=== PATIENT | male | born 1980 | race Caucasian/White ===

== ENCOUNTER 2023-12-08 12:25 | Inpatient (IN) | payer BC, SELFPAY ==
--- NOTE | 2023-12-08 12:35 | W.ED.PSYCHS ---
HPI - Psych General: Chief Complaint: Psychiatric Symptoms Stated Complaint: SI-HI Time Seen by Provider: 12/08/23 12:27 Source: patient Mode of arrival: ambulatory Limitations: no limitations History of Present Illness: Patient is a 43-year-old male who presents to ED today with complaint of worsening depression and suicidal ideations. Patient was reportedly sent over from his therapist/counselor. He states he has a longstanding history of depression. He is on antidepressant medications but do not feel like these are working. Patient feels like his suicidal thoughts are worsening and contemplate suicide daily. He has no specific plan at this time. He does report a previous suicide attempt. Patient states he has not been eating secondary to his depression and is having significant weight loss. Patient states I have a lot going on right now that is contributing to his worsening depression and suicidal thoughts. MD complaint: suicidal ideation and feels depressed Onset (ago): month(s) Duration: constant and getting worse History of same: Yes Relieving factors: none Exacerbating factors: other (stress) Context: significant life stressor Associated psychiatric symptoms: depression and suicidal ideation Associated symptoms: Reports depression and suicidal ideation; Deny auditory hallucinations or visual hallucinations Treatments prior to arrival: none If self harm: admits thoughts of self harm Review of Systems Const: Denies: fever(s) or chills Card: Denies: chest pain, palpitations, lightheadedness or syncope Resp: Denies: dyspnea GI: Denies: abdominal pain, nausea, vomiting or diarrhea Skin/Breast: Denies: rash Neuro: Denies: headache(s) Psych: Reports: anxiety, depression, hopelessness and suicidal ideation; Denies: paranoia, visual hallucinations or auditory hallucinations [facility] ED PFSH: Medical History Psychiatric care Physical Exam Const: COMMON NORMALS: no acute distress, average body habitus, patient oriented x3, no limitations, healthy appearing, alert and well nourished GENERAL APPEARANCE: cooperative Resp: COMMON NORMALS: normal respiratory effort and clear to auscultation bilaterally AUSCULTATION: clear to auscultation bilaterally Cardio: COMMON NORMALS: regular rate and regular rhythm RATE: regular rate RHYTHM: regular rhythm Neuro: COMMON NORMALS: patient oriented x3 SENSORIUM/ORIENTATION: Yes alert Psych: COMMON NORMALS: mental status grossly normal, Normal thought process present, cooperative, normal affect, speech normal and activity/motor behavior normal APPEARANCE: Yes grossly normal ATTITUDE: Yes calm ACTIVITY/MOTOR BEHAVIOR: Yes appropriate eye contact and No psychomotor agitation SPEECH: Yes normal speech MOOD & AFFECT: Yes euthymic mood THOUGHT PROCESS: Normal thought process present THOUGHT CONTENT: Yes Suicidality present MEMORY/COGNITION: Yes memory grossly intact and Yes cognition grossly intact INSIGHT: Good insight present (Psych) JUDGEMENT: Good judgement present (Psych) Course Consultations: Consultation #1: Dr. Dow-accepts to [facility] Vital Signs: Vital signs: Vital Signs Temperature 98.6 F 12/08/23 12:36 Pulse Rate 84 12/08/23 12:36 Respiratory Rate 16 12/08/23 12:36 Blood Pressure 143/86 12/08/23 12:36 Pulse Oximetry 98 12/08/23 12:36 MDM - Psych Medical Decision Making Patient will be an admit to [facility] for treatment/evaluation of his worsening depression and suicidal ideations. He is voluntary at this time. Lab Data 12/08/23 13:08 12/08/23 13:08 Laboratory Results WBC 5.96 10^3/uL (3.29-11.43) 12/08/23 13:08 RBC 5.18 10^6/uL (3.85-5.65) 12/08/23 13:08 Hgb 16.10 g/dL (11.27-16.99) 12/08/23 13:08 Hct 46.9 % (37-53) 12/08/23 13:08 MCV 90.5 fl (82-101) 12/08/23 13:08 MCH 31.1 pg (27-33) 12/08/23 13:08 MCHC 34.3 g/dL (30-55) 12/08/23 13:08 RDW 13.6 % (12.1-15.1) 12/08/23 13:08 Plt Count 298 10^3/cmm (157-399) 12/08/23 13:08 MPV 8.2 fL (7.4-10.4) 12/08/23 13:08 Neut % (Auto) 75.3 % 12/08/23 13:08 Lymph % (Auto) 14.3 % 12/08/23 13:08 [place] % (Auto) 8.7 % 12/08/23 13:08 Eos % (Auto) 0.7 % 12/08/23 13:08 Baso % (Auto) 0.7 % 12/08/23 13:08 Neut # (Auto) 4.49 10^3/uL (1.8-7.7) 12/08/23 13:08 Lymph # (Auto) 0.9 10^3/uL (0.8-4.8) 12/08/23 13:08 [place] # (Auto) 0.5 10^3/uL (0.2-0.9) 12/08/23 13:08 Eos # (Auto) 0.0 10^3/uL (0.0-0.8) 12/08/23 13:08 Baso # (Auto) 0.0 10^3/uL (0.0-0.1) 12/08/23 13:08 Nucleated RBC % (auto) 0 % 12/08/23 13:08 Nucleated RBCs # 0.0 /100WBC 12/08/23 13:08 Sodium 139 mmol/L (136-145) 12/08/23 13:08 Potassium 3.7 mmol/L (3.5-5.1) 12/08/23 13:08 Chloride 98 mmol/L (98-107) 12/08/23 13:08 Carbon Dioxide 30 mmol/L (22-29) H 12/08/23 13:08 Anion Gap 14.7 (5-19) 12/08/23 13:08 BUN 8 mg/dL (6-20) 12/08/23 13:08 Creatinine 0.9 mg/dL (0.7-1.2) 12/08/23 13:08 GFR Calculation 93.0 mL/min (90-130) 12/08/23 13:08 Glucose 115 mg/dL (65-115) 12/08/23 13:08 Calculated Osmolality 287 mOsm/kg (285-295) 12/08/23 13:08 Calcium 9.6 mg/dL (8.5-10.5) 12/08/23 13:08 Total Bilirubin 0.9 mg/dL (0.15-1.2) 12/08/23 13:08 AST 17 U/L (0-40) 12/08/23 13:08 ALT 15 U/L (0-41) 12/08/23 13:08 Alkaline Phosphatase 55 U/L (40-130) 12/08/23 13:08 Total Protein 7.8 g/dL (6.6-8.7) 12/08/23 13:08 Albumin 4.9 g/dL (3.5-5.2) 12/08/23 13:08 Globulin 2.9 g/dL (1.3-4.6) 12/08/23 13:08 TSH 1.37 uIU/mL (0.27-4.20) 12/08/23 13:08 Salicylates < 0.3 mg/dL (3-10) L 12/08/23 13:08 Acetaminophen < 5.0 ug/mL (10-30) L 12/08/23 13:08 Ethyl Alcohol < 10 mg/dL (0-10) 12/08/23 13:08 No radiology studies performed this visit Discharge Plan Discharge Patient Disposition: Admitted As Inpatient Clinical Impression: Suicidal ideation, Depression Condition: Stable Coding Level of Care Code ED Coordinator Of Rehabilitation Services for Vivien Calderon
[2023-12-08 12:36] VITALS: BP 143/86; PULSE 84; RESP 16; TEMP 37; O2SAT 98
--- NOTE | 2023-12-08 12:51 | ECG_ITS ---
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 Measurements Intervals [place] Rate: 73 P: 63 CT: 174 QRS: 60 QRSD: 118 T: 43 QT: 380 QTc: 421 Interpretive Statements SINUS RHYTHM POSSIBLE RIGHT VENTRICULAR CONDUCTION DELAY [RSR (QR) IN V1/V2] No previous ECG available for comparison Electronically Signed On 12-08-2023 19:08:04 CDT by Esdras Ag M.D. [email or web address] Therapy and [email or web address] [email or web address] Global/[id number] f
[2023-12-08 13:22] LABS: Basophils % 0.7 %; Eosinophils % 0.7 %; Hematocrit 46.9 % (37-53); Lymphocytes # 0.9 10^3/uL (0.8-4.8); Lymphocytes % 14.3 %; Mean Corpuscular HGB Conc 34.3 g/dL (30-55); Mean Corpuscular Hemoglobin 31.1 pg (27-33); Mean Corpuscular Volume 90.5 fl (82-101); Mean Platelet Volume 8.2 fL (7.4-10.4); Monocytes # 0.5 10^3/uL (0.2-0.9); Monocytes % 8.7 %; Neutrophils # 4.49 10^3/uL (1.8-7.7); Neutrophils % 75.3 %; Nucleated Red Blood Cells % 0 %; Platelet Count 298 10^3/cmm (157-399); Red Blood Count 5.18 10^6/uL (3.85-5.65); Red Cell Distribution Width 13.6 % (12.1-15.1); White Blood Count 5.96 10^3/uL (3.29-11.43)
[2023-12-08 13:45] LABS: Alanine Aminotransferase 15 U/L (0-41); Albumin Level 4.9 g/dL (3.5-5.2); Alkaline Phosphatase 55 U/L (40-130); Anion Gap 14.7 (5-19); Aspartate Amino Transferase 17 U/L (0-40); Blood Urea Nitrogen 8 mg/dL (6-20); Calcium 9.6 mg/dL (8.5-10.5); Carbon Dioxide 30 mmol/L (22-29); Chloride 98 mmol/L (98-107); Creatinine Clr Calc Pharmacy 116.8121; Globulin 2.9 g/dL (1.3-4.6); Glucose 115 mg/dL (65-115); Osmolality Calculated 287 mOsm/kg (285-295); Potassium 3.7 mmol/L (3.5-5.1); Sodium 139 mmol/L (136-145); Thyroid Stimulating Hormone 1.37 uIU/mL (0.27-4.20); Total Bilirubin 0.9 mg/dL (0.15-1.2); Total Protein 7.8 g/dL (6.6-8.7)
[2023-12-08 13:47] LABS: Acetaminophen < 5.0 ug/mL (10-30); Alcohol Level < 10 mg/dL (0-10); Salicylate < 0.3 mg/dL (3-10)
[2023-12-08 16:47] VITALS: BP 150/87; PULSE 68; RESP 17; TEMP 36.8; O2SAT 97
[2023-12-08 17:23] VITALS: BP 144/89; PULSE 78; RESP 18; TEMP 36.7; O2SAT 99
[2023-12-08 18:59] LABS: Amphetamines Screen Urine Negative (Negative); Barbiturates Screen Urine Negative (Negative); Benzodiazepines Screen Urine Negative (Negative); Cocaine Screen Urine Negative (Negative); Opiate Screen Urine Negative (Negative); PCP Screen Urine Negative (Negative); THC Screen Urine Negative (Negative)
--- NOTE | 2023-12-08 19:11 | PC.NURSE ---
Patient states he is feeling depressed and suicidal because a lot has been piling up on him lately. He states he just finished closing a grocery store that he lost recently that he bought before [place]. He says he is currently going through a divorce due to his cheating on him approximately 2 years ago. Patient states he has lost approximately 40 pounds in 6 weeks because it makes him sick to eat because he is so emotional. He says he walks to help clear his head and cope and recently walked 500 miles in 8 days. He is currently homeless and living at the [facility]. Patient is on probation at this time. He says it is for stealing a motor vehicle, but that it is not a legitimate claim because he and his father have the same name and the vehicle was registered in his name, but his father claimed it was his. The paperwork did not specify which it was. He endorses [place] with margarito gonzales at one time and then attempting to overdose on 15 tramadol and 6 phentermine last March or April. Patient denies having prior issues with alcoholism, but states he has been drinking quite a bit over the last month. However, he says he only had 2 beers yesterday. Patient also has 7 children, 2 of which are adults. He says the youngest 2 are adopted. Patient talking excessively about his he is and admits to posting about her on Facebook every time she sends him something unkind through text or voicemail.
--- NOTE | 2023-12-08 19:11 | PC.NURSE ---
Patient states he had a heat stroke 3 weeks ago and was hospitalized in [place], [place]. Denies being prescribed any medications.
[2023-12-08 21:03] VITALS: BP 131/92; PULSE 67; RESP 18; O2SAT 98
[2023-12-09 06:00] VITALS: BP 120/77; PULSE 64; RESP 18; TEMP 36.6; O2SAT 97
--- NOTE | 2023-12-09 12:30 | P.NPUHP_ITS ---
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 about yourself - or that you are a failure or have let yourself or your family down: nearly every day 7. Trouble concentrating on things, such as reading the newspaper or watching television: not at all 8. Moving or speaking so slowly that other people could have noticed. Or the opposite - being so fidgety or restless that you have been moving around a lot more than usual: more than half the days 9. Thoughts that you would be better off or of hurting yourself in some way: nearly every day PHQ-9 score (0-4 None; 5-9 Mild; 10-14 Moderate; 15-19 Moderately severe; 20-27 Severe) Total score: 23 10. If you checked off any problems, how difficult have those problems made it for you to do your work, take care of things at home, or get along with other people?: extremely difficult Source: Developed by Drs. Jayson Adler, Pebbles Caputo, Wolfgang Park and colleagues, with an educational leida from [employer]. OZH CHRISTOPHER-7 CHRISTOPHER-7 Over the last 2 weeks, have you felt bothered by any of these things? Feeling nervous, anxious, or on edge: 3 = Nearly every day Not being able to stop or control worryin = Nearly every day Worrying too much about different things: 3 = Nearly every day Trouble relaxin = Nearly every day Being so restless that it is hard to sit still: 3 = Nearly every day Becoming easily annoyed or irritable: 1 = Several days Feeling afraid as if something awful might happen: 0 = Not at all Total CHRISTOPHER-7 score (0-4 normal; 5-9 mild; 10-14 moderate; 15-21 severe): 16 Meds NPU Home Medications Medication Instructions Recorded Confirmed Last Taken Type ondansetron 4 mg disintegrating 4 mg PO Q6H PRN Nausea And Vomiting 12/08/23 12/08/23 Unknown History tablet sertraline 100 mg tablet 100 mg PO DAILY 12/08/23 12/08/23 Unknown History Allergies Allergy/AdvReac Type Severity Reaction Status Date / Time No Known Allergies Allergy Verified 12/08/23 12:35 PFSH NPU 2 PFSH: Medical History Psychiatric care Mental Status Exam 2 MSE Comments: Patient is a casually dressed healthy white male who appeared his stated age with poor hygiene and normal gait. He had long hair. His speech was normal in regards to rate rhythm and prosody. There was evidence of significant psychomotor retardation. His Mood was described as depressed. His affect was restricted in range and mood congruent. His thought process was linear logical and goal-directed. His thought content showed evidence of suicidal ideation with no clear plan endorsed. He denied any homicidal ideation. Significant themes of hopelessness were noted. He did not appear to be responding to internal stimuli. There was no clear evidence of delusional thinking. His recent and remote memory were grossly intact. His insight was poor. His judgment was poor. His impulse control was poor. Vitals/I&O/Wt Last Vital Signs Temp 97.8 F 12/09/23 06:00 Pulse 64 12/09/23 06:00 Resp 18 12/09/23 06:00 BP 120/77 12/09/23 06:00 Pulse Ox 97 12/09/23 06:00 O2 Del Method Room Air 12/09/23 06:00 Weight last 48 hrs Weight 81.647 kg Data NPU 12/08/23 13:08 12/08/23 13:08 A&P Assessment and plan (1) Severe single current episode of major depressive disorder, without psychotic features: (2) Suicidal ideation: (3) CHRISTOPHER (generalized anxiety disorder): Plan 43-year-old male with a history of major depressive disorder, generalized anxiety disorder admitted with worsening depression and suicidal ideation with significant neurovegetative symptoms and reporting no benefit from an adequate trial of Zoloft. #1. ?Engage patient in individual milieu and group therapy. #2?? Recommend sober living treatment at the highest level of care to which the patient is willing to commit #3??? Hold Zoloft and initiate paxil 20mg at night to target CHRISTOPHER and depression, add seroquel adjunctively for treatment of depression. #4?? TO-15 minute checks? #5?? Will attempt to gather collateral information Involuntary Hold Information 2 96 Hour Hold: 96 Hour Involuntary Admission: No Attestations NPU 2 Medical Necessity Statement*: Inpatient hospitalization is medically necessary and deemed to ?be ?the clinically appropriate intervention ?at this time.? We will monitor/initiate medications and make changes as indicated.? The patient will be in the hospital for over 2 midnights.? The patient?s likely length of stay 7-10 days. Coding Level of Care Code Acute Code for Chg Fwd Diagnoses Severe single current episode of major depressive disorder, without psychotic features F32.2 Suicidal ideation R45.851 CHRISTOPHER (generalized anxiety disorder) F41.1
[2023-12-09 14:00] VITALS: BP 128/79; PULSE 87; RESP 16; TEMP 36.9; O2SAT 96
[2023-12-09] MEDS: OLANZapine 5 mg ODT PO (15:47)
[2023-12-09 20:00] VITALS: BP 121/71; PULSE 80; RESP 20; TEMP 36.4; O2SAT 96
[2023-12-09] MEDS: PARoxetine 20 mg Tablet PO (20:14)
[2023-12-09] MEDS: quetiapine 25 mg Tablet 50 MG PO (20:14)
[2023-12-09 22:00] VITALS: BP 121/71; PULSE 80; RESP 20; TEMP 36.4; O2SAT 96
[2023-12-10 06:00] VITALS: BP 101/67; PULSE 68; RESP 18; TEMP 36.4; O2SAT 97
--- NOTE | 2023-12-10 12:31 | P.NPUPN_ITS ---
Subjective NPU 2 Subjective: 43-year-old male admitted with suicidal ideation and severe depression with history of generalized anxiety disorder, major depressive disorder and some symptoms suggestive of obsessive-compulsive disorder. He had continued to endorse depressed mood. He had reported some improvement in sleep. He had continued to endorse some feelings of hopelessness. He had reported having significant problems with managing his chronic worry. He had continued to report low motivation. He had isolated on the milieu. He had reported some profound weight loss over the past few months but reported that he was trying to eat here on the unit. He had continued to endorse some feelings of hopelessness. Mental Status Exam 2 MSE Comments: Patient is a casually dressed healthy white male who appeared his stated age with poor hygiene and normal gait. He had long hair. His speech was normal in regards to rate rhythm and prosody. There was evidence of significant psychomotor retardation. His mood was described as depressed. His affect was restricted in range and mood congruent. His thought process was linear, logical and goal-directed. His thought content showed no evidence of suicidal ideation today. He denied any homicidal ideation. Significant themes of hopelessness and worthlessness were noted. He did not appear to be responding to internal stimuli. There was no clear evidence of delusional thinking. His recent and remote memory were grossly intact. His insight was poor. His judgment was poor. His impulse control was poor. Vitals/I&O/Wt Last Vital Signs Temp 97.6 F 12/10/23 06:00 Pulse 68 12/10/23 06:00 Resp 18 12/10/23 06:00 BP 101/67 12/10/23 06:00 Pulse Ox 97 12/10/23 06:00 O2 Del Method Room Air 12/10/23 06:00 Data NPU 12/08/23 13:08 12/08/23 13:08 A&P Assessment and plan (1) Severe single current episode of major depressive disorder, without psychotic features: (2) Suicidal ideation: (3) CHRISTOPHER (generalized anxiety disorder): Plan 43-year-old male with a history of major depressive disorder, generalized anxiety disorder admitted with worsening depression and suicidal ideation with significant neurovegetative symptoms and reporting no benefit from an adequate trial of Zoloft. #1. ?Engage patient in individual milieu and group therapy. #2?? Recommend sober living treatment at the highest level of care to which the patient is willing to commit #3??? Hold Zoloft and initiate paxil 30mg at night to target CHRISTOPHER and depression,increase seroquel to 100mg at night. #4?? TO-15 minute checks? #5?? Will attempt to gather collateral information Involuntary Hold Information 2 96 Hour Hold: 96 Hour Involuntary Admission: No Attestations NPU 2 Medical Necessity Statement*: Inpatient hospitalization is medically necessary and deemed to ?be ?the clinically appropriate intervention ?at this time.? We will monitor/initiate medications and make changes as indicated.? The patient?s likely length of stay 5-7 days. Coding Level of Care Code Acute Code for Chg Fwd Diagnoses Severe single current episode of major depressive disorder, without psychotic features F32.2 Suicidal ideation R45.851 CHRISTOPHER (generalized anxiety disorder) F41.1
[2023-12-10 14:00] VITALS: BP 120/76; PULSE 104; RESP 18; TEMP 36.7; O2SAT 98
[2023-12-10 20:19] VITALS: BP 122/78; PULSE 64; RESP 16; TEMP 36.5; O2SAT 97
[2023-12-10] MEDS: quetiapine 25 mg Tablet 100 MG PO (20:59)
[2023-12-10] MEDS: PARoxetine 20 mg Tablet 30 MG PO (20:59)
[2023-12-11 06:00] VITALS: BP 125/90; PULSE 71; RESP 17; TEMP 36.4; O2SAT 98
--- NOTE | 2023-12-11 13:10 | P.NPUPN_ITS ---
Subjective NPU 2 Subjective: Patient presented today reporting that he is feeling better. He reports that the change in the Paxil and Seroquel have been good. He reports his overwhelming anxiety has subsided and that he is feeling hopeful about tackling the challenges in his life. He denies any side effects of the medication. 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 We discussed the likelihood of discharge in the next 48 hours and we agreed to consider discharge today after we make sure all appointments have been established. Mental Status Exam 2 MSE Comments: Patient is a casually dressed healthy white male who appeared his stated age with improved hygiene and normal gait. He had long hair. His speech was normal in regards to rate rhythm and prosody. There was only evidence of mild psychomotor retardation. His mood was described as better. His affect was mostly euthymic but slightly subdued. His thought process was linear, logical and goal-directed. His thought content showed no evidence of suicidal or homicidal ideation. Reports of significant improvement in his feelings of hopelessness and worthlessness. He did not appear to be responding to internal stimuli. There was no clear evidence of delusional thinking. His recent and remote memory were grossly intact. He was alert and oriented x 3. Insight and judgment appeared fair and his impulse control appeared to be improving. Vitals/I&O/Wt Last Vital Signs Temp 97.6 F 12/11/23 06:00 Pulse 71 12/11/23 06:00 Resp 17 12/11/23 06:00 BP 125/90 12/11/23 06:00 Pulse Ox 98 12/11/23 06:00 O2 Del Method Room Air 12/11/23 06:00 Data NPU 12/08/23 13:08 12/08/23 13:08 A&P Assessment and plan (1) Severe single current episode of major depressive disorder, without psychotic features: (2) Suicidal ideation: (3) CHRISTOPHER (generalized anxiety disorder): Plan 43-year-old male with a history of major depressive disorder, generalized anxiety disorder admitted with worsening depression and suicidal ideation with significant neurovegetative symptoms and reporting no benefit from an adequate trial of Zoloft. 1. ?Engage patient in individual milieu and group therapy. 2.?? Recommend sober living treatment at the highest level of care to which the patient is willing to commit 3.??? Discontinue Zoloft and initiated paxil 30mg at night to target CHRISTOPHER and depression, increased seroquel to 100mg at night. 4.?? TO-15 minute checks? 5.?? Will work with social work team to get appropriate discharge appointments and will consider discharge between now in 48 hours. Involuntary Hold Information 2 96 Hour Hold: 96 Hour Involuntary Admission: No Attestations NPU 2 Medical Necessity Statement*: Inpatient hospitalization is medically necessary and deemed to ?be ?the clinically appropriate intervention ?at this time.? We will monitor/initiate medications and make changes as indicated.? The patient?s likely length of stay 1-2 days. Coding Level of Care Code Acute Code for Chg Fwd Diagnoses Severe single current episode of major depressive disorder, without psychotic features F32.2 Suicidal ideation R45.851 CHRISTOPHER (generalized anxiety disorder) F41.1
[2023-12-11 14:00] VITALS: BP 123/80; PULSE 88; RESP 16; TEMP 36.8; O2SAT 97
--- NOTE | 2023-12-11 17:44 | P.NPUDS_ITS ---
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 hopeless: nearly every day 3. Trouble falling or staying asleep, or sleeping too much: nearly every day 4. Feeling tired or having little energy : nearly every day 5. Poor appetite or overeating: nearly e very day 6. Feeling bad about yourself - or that you are a failure or have let yourself or your family down: nearly every day 7. Trouble concentrating on things, such as reading the newspaper or watching television: not at all 8. Moving or speaking so slowly that [facility] people could have noticed. Or the opposite - being so fidgety or restless that you have been moving around a lot more than usual: more than half the days 9. Thoughts that you would be better off or of hurting yourself in some way: nearly every day PHQ-9 score (0-4 None; 5-9 Mild; 10-14 Moderate; 15-19 Moderately severe; 20-27 Severe) Total score: 23 10. If you checked off any problems, how difficult have those problems made it for you to do your work, take care of things at home, or get along with other people?: extremely difficult Source: Developed by Drs. Jayson Adler, Pebbles Caputo, Wolfgang Park and colleagues, with an educational leida from [employer]. OZH CHRISTOPHER-7 CHRISTOPHER-7 Over the last 2 weeks, have you felt bothered by any of these things? Feeling nervous, anxious, or on edge: 3 = Nearly every day Not being able to stop or control worryin = Nearly every day Worrying too much about different things: 3 = Nearly every day Trouble relaxin = Nearly every day Being so restless that it is hard to sit still: 3 = Nearly every day Becoming easily annoyed or irritable: 1 = Several days Feeling afraid as if something awful might happen: 0 = Not at all Total CHRISTOPHER-7 score (0-4 normal; 5-9 mild; 10-14 moderate; 15-21 severe): 16 Hospital Course Hospital Course He acclimated to the individual, group and milieu therapies provided. He presented on Zoloft and reporting that his medications have been ineffective. Zoloft was discontinued and Paxil was initiated at 20 mg p.o. nightly and increased to 30 mg before discharge and Seroquel was initiated and titrated to 100 mg p.o. nightly with a positive response. He worked with the social work team for appropriate discharge appointments and outpatient follow-up. He had significant improvement during the stay and he was able to contract for safety outside the hospital prior to discharge. During the hospitalization, patient had routine laboratory studies which were within normal limits except for few outliers. Additionally there was a general medical evaluation which was also within normal limits and revealed no new acute processes. Discharge Summary: At the time of discharge, he denied psychosis or lethality. Mood and anxiety were well managed. Patient endorsed a plan to avoid all drugs of abuse and foll ow-up with the aftercare recommendations of the treatment team. Patient was evaluated and deemed to be absent credible lethality, and had achieved significant benefit from an inpatient hospitalization, so was discharged. Involuntary Hold Information 96 Hour Hold: 96 Hour Involuntary Admission: No Mental Status Exam MSE Comments: Patient is a casually dressed healthy white male who appeared his stated age with improved hygiene and normal gait. He had long hair. His speech was normal in regards to rate rhythm and prosody. There was only evidence of mild psychomotor retardation. His mood was described as better. His affect was mostly euthymic but slightly subdued. His thought process was linear, logical and goal-directed. His thought content showed no evidence of suicidal or homicidal ideation. Reports of significant improvement in his feelings of hopelessness and worthlessness. He did not appear to be responding to internal stimuli. There was no clear evidence of delusional thinking. His recent and remote memory were grossly intact. He was alert and oriented x 3. Insight and judgment appeared fair and his impulse control appeared to be improving. Discharge Data Studies Completed and Pending: Laboratory Results WBC 5.96 10^3/uL (3.2 9-11.43) 12/08/23 13:08 RBC 5.18 10^6/uL (3.8 5-5.65) 12/08/23 13:08 Hgb 16.10 g/dL (11.27 -16.99) 12/08/23 13:08 Hct 46.9 % (37-53) 12/08/23 13:08 MCV 90.5 fl (82-101) 12/08/23 13:08 MCH 31.1 pg (27-33) 12/08/23 13:08 MCHC 34.3 g/dL (30-55) 12/08/23 13:08 RDW 13.6 % (12.1-15.1 ) 12/08/23 13:08 Plt Count 298 10^3/cmm (157 -399) 12/08/23 13:08 MPV 8.2 fL (7.4-10.4) 12/08/23 13:08 Neut % (Auto) 75.3 % 12/08/23 13:08 Lymph % (Auto) 14.3 % 12/08/23 13:08 Traverse % (Auto) 8.7 % 12/08/23 13:08 Eos % (Auto) 0.7 % 12/08/23 13:08 Baso % (Auto) 0.7 % 12/08/23 13:08 Neut # (Auto) 4.49 10^3/uL (1.8 -7.7) 12/08/23 13:08 Lymph # (Auto) 0.9 10^3/uL (0.8- 4.8) 12/08/23 13:08 Traverse # (Auto) 0.5 10^3/uL (0.2- 0.9) 12/08/23 13:08 Eos # (Auto) 0.0 10^3/uL (0.0- 0.8) 12/08/23 13:08 Baso # (Auto) 0.0 10^3/uL (0.0- 0.1) 12/08/23 13:08 Nucleated RBC % (a uto) 0 % 12/08/23 13:08 Nucleated RBCs # 0.0 /100WBC 12/08/23 13:08 Sodium 139 mmol/L (136-1 45) 12/08/23 13:08 Potassium 3.7 mmol/L (3.5-5 .1) 12/08/23 13:08 Chloride 98 mmol/L (98-107 ) 12/08/23 13:08 Carbon Dioxide 30 mmol/L (22-29) H 12/08/23 13:08 Anion Gap 14.7 (5-19) 12/08/23 13:08 BUN 8 mg/dL (6-20) 12/08/23 13:08 Creatinine 0.9 mg/dL (0.7-1. 2) 12/08/23 13:08 GFR Calculation 93.0 mL/min (90-1 30) 12/08/23 13:08 Glucose 115 mg/dL (65-115 ) 12/08/23 13:08 Calculated Osmolal ity 287 mOsm/kg (285- 295) 12/08/23 13:08 Calcium 9.6 mg/dL (8.5-10 .5) 12/08/23 13:08 Total Bilirubin 0.9 mg/dL (0.15-1 .2) 12/08/23 13:08 AST 17 U/L (0-40) 12/08/23 13:08 ALT 15 U/L (0-41) 12/08/23 13:08 Alkaline Phosphata se 55 U/L (40-130) 12/08/23 13:08 Total Protein 7.8 g/dL (6.6-8.7 ) 12/08/23 13:08 Albumin 4.9 g/dL (3.5-5.2 ) 12/08/23 13:08 Globulin 2.9 g/dL (1.3-4.6 ) 12/08/23 13:08 TSH 1.37 uIU/mL (0.27 -4.20) 12/08/23 13:08 Salicylates < 0.3 mg/dL (3-10 ) L 12/08/23 13:08 Urine Opiates Scre en Negative ng/mL (N egative) 12/08/23 17:45 Acetaminophen < 5.0 ug/mL (10-3 0) L 12/08/23 13:08 Ur Barbiturates Sc reen Negative ng/mL (N egative) 12/08/23 17:45 Ur Phencyclidine S crn Negative ng/mL (N egative) 12/08/23 17:45 Ur Amphetamines Sc reen Negative ng/mL (N egative) 12/08/23 17:45 U Benzodiazepines Scrn Negative ng/mL (N egative) 12/08/23 17:45 Urine Cocaine Scre en Negative ng/mL (N egative) 12/08/23 17:45 U Marijuana (THC) Screen Negative ng/mL (N egative) 12/08/23 17:45 Ethyl Alcohol < 10 mg/dL (0-10) 12/08/23 13:08 Vitals: Last Vital Signs Temp 98.3 F 12/11/23 14:00 Pulse 88 12/11/23 14:00 Resp 16 12/11/23 14:00 BP 123/80 12/11/23 14:00 Pulse Ox 97 12/11/23 14:00 O2 Del Method Room Air 12/11/23 14:00 Discharge Plan Discharge Patient Disposition: Home Condition: Stable Prescriptions: New paroxetine HCl 30 mg tablet 30 mg PO 2100 30 Days Qty: 30 1RF quetiapine 100 mg tablet 100 mg PO BEDTIME 30 Days Qty: 30 1RF Continued ondansetron 4 mg tablet,disintegrating 4 mg PO Q6H PRN (Reason: Nausea And Vomiting) Discontinued sertraline 100 mg tablet 100 mg PO DAILY Discharge Orders: Discharge Order (Routine); Ordered 12/11/23 Ordered By: Ishaan Caputo Referrals: [facility] [Other] (Joy Jimenez) Dr Christy Christian [facility] [Other] - 01/06/24 2:30 pm [facility] [Outside] - 12/15/23 10:15 am (Hospital follow up with Arnel Gray) Cecelia Carty, [Family Provider] - Discharge Diet: Regular Discharge Activity: Resume usual activity Patient Instructions: Generalized Anxiety Disorder, Paroxetine (By mouth) (Paxil, Paxil CR, Brisdelle, Pexeva), Quetiapine (By mouth) (Seroquel, Seroquel XR, Seroquel XR 14-Day..., Depression (DC), Help Prevent Suicide (DC), Opioid Safety, Pain Management Discharge Attestations NPU Time Spent in Discharge Care*: less than 30 min Specific Discharge Activities: Specific discharge activities: educating patient, discussing with medical case worker/social workers/dc planners, documenting/other paperwork and evaluating patient/reviewing data Coding Level of Care Code Acute Code for Chg Fwd Diagnoses Severe single current episode of major depressive disorder, without psychotic features F32.2 Suicidal ideation R45.851 CHRISTOPHER (generalized anxiety disorder) F41.1
[2023-12-11 18:14] VITALS: BP 123/80; PULSE 88; RESP 16; TEMP 36.8; O2SAT 97
== END 2023-12-11 18:38 | disposition home or self-care (01) | DRG 885 ==
LOC: ER 16:19 → NP 16:35
PROVIDERS: Admitting Provider Psychiatry & Neurology Psychiatry; Emergency Provider Physician Assistant; Family Provider Family Medicine; Visit Provider Psychiatry & Neurology Psychiatry
DX: F32.2 Major depressive disorder, single episode, severe without psychotic features (principal); R45.851 Suicidal ideations; F41.1 Generalized anxiety disorder
CPT/HCPCS: 80053; 80306; 80307; 84443; 85025; 93005; 97150; 97165; 99285